=== PATIENT | female | born 1975 ===

== ENCOUNTER 2020-02-13 20:47 | Emergency (ER) | payer SELFPAY ==
[~2020-02-13] VITALS: Ht 170.2 cm; Wt 76.7 kg
--- NOTE | 2020-02-13 21:24 | NUR ---
THIS IS A 44 YO F W/ C/O NECK/HEAD PAIN AFTER A SYNCOPAL EPISODE AT APPROX 1999. REPORTS LOC. PT STATES SHE WAS SITTING DOWN AND STOOD UP WHEN SHE FAINTED. PT REPORTS HX OF SYNCOPAL EPISODE. DENIES MEDICAL HX. PT RESTING ON KENNY W/ AT BEDSIDE W/ TUBE LANCER. VS STABLE. NADN. AWAITING ORDERS.
[2020-02-13 21:27] VITALS: BP 135/102
[2020-02-13 21:54] LABS: BASOPHILS # (AUTO) 0.02 x10^3/uL (0-0.1); BASOPHILS % (AUTO) 0 % (0-1); EOSINOPHILS # (AUTO) 0.11 x10^3/uL (0-0.4); EOSINOPHILS % (AUTO) 1 % (1-7); LYMPHOCYTES # (AUTO) 2.39 x10^3/uL (1-3.4); LYMPHOCYTES % (AUTO) 31 % (22-44); MD NO; MEAN CORPUSCULAR HEMOGLOBIN 29.8 pg (27.0-34.8); MEAN CORPUSCULAR HGB CONC 33.4 g/dL (32.4-35.8); MEAN CORPUSCULAR VOLUME 89.1 fL (80-100); MEAN PLATELET VOLUME 7.4 fL (7.4-10.4); MONOCYTES # (AUTO) 0.64 x10^3/uL (0.2-0.8); MONOCYTES % (AUTO) 8 % (2-9); NEUTROPHILS % (AUTO) 59 % (42-75); PLATELET COUNT 331 x10^3/uL (130-400); RED BLOOD COUNT 4.62 x10^6/uL (3.82-5.3); RED CELL DISTRIBUTION WIDTH 13.9 % (9.6-15.2)
[2020-02-13 22:07] LABS: ALANINE AMINOTRANSFERASE 17 U/L (12-78); ALBUMIN 3.9 g/dL (3.4-5.0); ANION GAP 5 mmol/L (5-15); CALCIUM 8.8 mg/dL (8.5-10.1); CHLORIDE 108 mmol/L (98-107); CREATININE 0.72 mg/dL (0.55-1.02)
[2020-02-13 22:11] LABS: ALKALINE PHOSPHATASE 58 U/L (45-117); BILIRUBIN,TOTAL 0.6 mg/dL (0.2-1.0); TOTAL PROTEIN 7.9 g/dL (6.4-8.2)
--- NOTE | 2020-02-13 22:44 | NUR ---
PT TO CT.
== END 2020-02-13 23:37 | disposition home or self-care (01) ==
LOC: ED 23:28
DX: S16.1XXA Strain of muscle, fascia and tendon at neck level, initial encounter (principal); R55 Syncope and collapse; R51 Headache; R94.31 Abnormal electrocardiogram [ECG] [EKG]; X58.XXXA Exposure to other specified factors, initial encounter; Y93.89 Activity, other specified; Y92.89 Other specified places as the place of occurrence of the external cause; Y99.8 Other external cause status
CPT/HCPCS: 36415; 70450; 72125; 80053; 84703; 85025; 93005; 99285